=== PATIENT | female | born 1975 | race Caucasian/White ===

== ENCOUNTER 2018-01-24 22:16 | Emergency (ER) | payer MEDICAID ==
[~2018-01-24] VITALS: Ht 157.5 cm; Wt 94.1 kg
[2018-01-24 22:25] VITALS: BP 189/107; PULSE 81; RESP 18; TEMP 97.8; O2SAT 100
[2018-01-24] MEDS ORDERED: DEXAMETHASONE SOD PHOS 4 MG/ML VIAL IV PUSH ONE (23:00)
--- NOTE | 2018-01-24 23:00 | PD ---
HPI Chief Complaint: Allergic/Adverse Reaction Time Seen by Provider: 22:37 Travel History International Travel<30 days: No Contact w/Intl Traveler<30days: No Traveled to known affect area: No History of Present Illness HPI 42-year-old female is worried she may have developed an allergic reaction to shellfish. She was at dinner earlier today with a cervix shellfish. She did not eat any but is worried she might have contacted with her hands. She developed swelling in the nose. There was a brief episode of tongue swelling however that has resolved. The patient took Benadryl about 3 hours prior to ER evaluation. No shortness of breath. No sensation of throat fullness. PFSH Past Medical History Diabetes: Yes (Diet-controlled) Patient Takes Glucophage: No Diminished Hearing: No Respiratory: Yes (asthma) Tetanus Vaccination: < 5 Years Influenza Vaccination: Yes ?: Not Past Surgical History Hysterectomy: Yes Social History Alcohol Use: No Tobacco Use: No Substance Use: No Allergies-Medications (Allergen,Severity, Reaction): Coded Allergies: lisinopril (Verified Allergy, Severe, 01/24/18) Uncoded Allergies: seafood (Allergy, Severe, Swelling, 01/24/18) Review of Systems Except as stated in HPI: all other systems reviewed are Neg General / Constitutional: No: Fever Physical Exam Narrative GENERAL: 42-year-old female pleasant well-nourished well-developed no acute distress Vital Signs Date Time Temp Pulse Resp B/P (MAP) Pulse Ox O2 Delivery O2 Flow Rate FiO2 01/24/18 23:36 98.3 85 16 175/89 (117) 100 01/24/18 22:49 Room Air 01/24/18 22:25 97.8 81 18 189/107 (134) 100 SKIN: Warm and dry. HEAD: Atraumatic. Normocephalic. EYES: Pupils equal and round. No scleral icterus. No injection or drainage. ENT: No nasal bleeding or discharge. Mucous membranes pink and moist. Posterior oropharynx is widely patent. No significant edematous change involving the face or oropharynx. NECK: Trachea midline. No JVD. CARDIOVASCULAR: Regular rate and rhythm. RESPIRATORY: No accessory muscle use. Clear to auscultation. Breath sounds equal bilaterally. GASTROINTESTINAL: Abdomen soft, non-tender, nondistended. Hepatic and splenic margins not palpable. MUSCULOSKELETAL: Extremities without clubbing, cyanosis, or edema. No obvious deformities. NEUROLOGICAL: Awake and alert. No obvious cranial nerve deficits. Motor grossly within normal limits. Five out of 5 muscle strength in the arms and legs. Normal speech. PSYCHIATRIC: Appropriate mood and affect; insight and judgment normal. Data Data Last Documented VS Vital Signs Date Time Temp Pulse Resp B/P (MAP) Pulse Ox O2 Delivery O2 Flow Rate FiO2 01/24/18 23:36 98.3 85 16 175/89 (117) 100 01/24/18 22:49 Room Air Orders Orders Ed Discharge Order (01/24/18 22:59) Dexamethasone Inj (Decadron Inj) (01/24/18 23:00) MDM Medical Decision Making Medical Screen Exam Complete: Yes Emergency Medical Condition: Yes Medical Record Reviewed: Yes Differential Diagnosis Anaphylaxis, angioedema, scromboid Narrative Course Overall presentation is quite benign the patient has no allergy related emergency. We agreed to 1 IM injection of Decadron. The patient was quite pleased with this. Return precautions discussed. Diagnosis Primary Impression: Allergic reaction Qualified Codes: T78.40XA - Allergy, unspecified, initial encounter Referrals: Primary Care Physician Med/Other Pt SpecificInfo: No Change to Meds Disposition: 01 DISCHARGE HOME Condition: Stable Cayden Horvath MD January 24, 2018 23:00
[2018-01-24 23:36] VITALS: BP 175/89; TEMP 98.3
== END 2018-01-24 23:37 | disposition home or self-care (01) ==
LOC: PHED 22:16
DX: T78.40XA Allergy, unspecified, initial encounter (principal); E11.9 Type 2 diabetes mellitus without complications; J45.909 Unspecified asthma, uncomplicated
CPT/HCPCS: 96372; 99283; J1100